=== PATIENT | male | born 1975 | race Caucasian/White ===

== ENCOUNTER 2018-08-27 12:36 | Emergency (ER) | payer MEDICAID, OTHER ==
[~2018-08-27] VITALS: Ht 180.3 cm; Wt 104.3 kg
[2018-08-27 15:00] VITALS: BP 105/87
[2018-08-27] MEDS ORDERED: cefTRIAXone SOD 1,000 MG VL IM ONE (15:15)
[2018-08-27] MEDS ORDERED: methylPREDNISolone SOD SUCC 125 MG/2 ML VL IM ONE (15:15)
== END 2018-08-27 16:45 | disposition home or self-care (01) ==
LOC: ER 12:36
DX: J06.9 Acute upper respiratory infection, unspecified (principal); F17.210 Nicotine dependence, cigarettes, uncomplicated; F12.10 Cannabis abuse, uncomplicated; F41.9 Anxiety disorder, unspecified
CPT/HCPCS: 96372; 99283; J0696; J2930